=== PATIENT | male | born 1940 | race Caucasian/White ===

== ENCOUNTER 2021-07-04 13:47 | Emergency (ER) | payer MEDICARE ==
[~2021-07-04] VITALS: Ht 167.6 cm; Wt 68.2 kg
[2021-07-04] MEDS ORDERED: ALBUTEROL INHALER 1 PUFF/90 MCG INHALER IH PRN (14:20)
[2021-07-04] MEDS ORDERED: methylPREDNISolone sod succ 125mg/2ml vial IV ONE (14:25)
[2021-07-04 15:01] LABS: BASOPHILS # (AUTO) 0.2 X10'3 (0-0.2); BASOPHILS % (AUTO) 1.4 % (0-1); EOSINOPHILS # (AUTO) 0.2 X10'3 (0-0.9); EOSINOPHILS % (AUTO) 1.7 % (0-6); HEMOGLOBIN 15.3 g/dl (14.0-17.9); LYMPHOCYTES # (AUTO) 1.4 X10'3 (1.1-4.8); LYMPHOCYTES % (AUTO) 12.5 % (21-51); MEAN CORPUSCULAR HEMOGLOBIN 31.4 PG (27.0-31.0); MEAN CORPUSCULAR HGB CONC 34.1 g/dL (33.0-36.5); MEAN CORPUSCULAR VOLUME 92.1 FL (78-98); MEAN PLATELET VOLUME 8.4 FL (7.4-10.4); MONOCYTES # (AUTO) 0.8 X10'3 (0-0.9); MONOCYTES % (AUTO) 7.2 % (2-12); NEUTROPHILS # (AUTO) 8.7 X10'3 (1.8-7.7); NEUTROPHILS % (AUTO) 77.2 % (42-75); PLATELET COUNT 230 X10'3 (140-440); RED BLOOD COUNT 4.88 X10'6 (4.70-6.10); RED CELL DISTRIBUTION WIDTH 14.2 % (11.5-14.5); WHITE BLOOD COUNT 11.3 X10'3 (4.5-11.0)
[2021-07-04 15:24] LABS: ALANINE AMINOTRANSFERASE 19 U/L (12-78); ALBUMIN 4.1 G/DL (3.4-5.0); ALBUMIN/GLOBULIN RATIO 0.9 (1.1-1.5); ALKALINE PHOSPHATASE 122 IU/L (46-116); ANION GAP 10 (8-16); ASPARTATE AMINO TRANSFERASE 18 U/L (10-37); BLOOD UREA NITROGEN 23 MG/DL (7-18); BUN/CREATININE RATIO 17.3 (5.4-32.0); CHLORIDE 104 MMOL/L (99-107); CREATININE 1.33 MG/DL (0.60-1.10); GLUCOSE 87 MG/DL (70-104); POTASSIUM 4.3 MMOL/L (3.5-5.1); SODIUM 142 MMOL/L (135-145); TOTAL CARBON DIOXIDE 27.6 MMOL/L (24-32); TOTAL PROTEIN 8.5 G/DL (6.4-8.2); eGFR 51 ML/MIN
[2021-07-04] MEDS ORDERED: iohexol 350MG/ML 100ml bottle IV ONE (15:39)
[2021-07-04 16:59] VITALS: BP 142/106
[2021-07-04] MEDS ORDERED: PRED20TA PO (18:29)
[2021-07-04] MEDS ORDERED: DOXY-11 PO (18:29)
== END 2021-07-04 18:57 | disposition home or self-care (01) ==
LOC: ER 13:48
DX: I71.9 Aortic aneurysm of unspecified site, without rupture (principal); Z20.822 Contact with and (suspected) exposure to COVID-19; J44.1 Chronic obstructive pulmonary disease with (acute) exacerbation; R05.9 Cough, unspecified; R06.02 Shortness of breath; J02.9 Acute pharyngitis, unspecified; I10 Essential (primary) hypertension; E78.00 Pure hypercholesterolemia, unspecified; Z87.01 Personal history of pneumonia (recurrent); Z95.0 Presence of cardiac pacemaker; Z98.890 Other specified postprocedural states; Z79.2 Long term (current) use of antibiotics
CPT/HCPCS: 36415; 71045; 71275; 80053; 84145; 84484; 85025; 87502; 87503; 87635; 93005; 96374; 99285; C9803; J2930; Q9967

== ENCOUNTER 2022-01-28 15:24 | Emergency (ER) | payer MEDICARE ==
[~2022-01-28] VITALS: Ht 172.7 cm; Wt 68.2 kg
[2022-01-28 17:13] LABS: BASOPHILS # (AUTO) 0.1 X10'3 (0-0.2); BASOPHILS % (AUTO) 0.8 % (0-1); EOSINOPHILS # (AUTO) 0.1 X10'3 (0-0.9); EOSINOPHILS % (AUTO) 1.9 % (0-6); HEMATOCRIT 48.5 % (42.0-52.0); HEMOGLOBIN 16.4 g/dl (14.0-17.9); LYMPHOCYTES # (AUTO) 0.9 X10'3 (1.1-4.8); LYMPHOCYTES % (AUTO) 11.6 % (21-51); MEAN CORPUSCULAR HEMOGLOBIN 30.4 PG (27.0-31.0); MEAN CORPUSCULAR HGB CONC 33.8 g/dL (33.0-36.5); MEAN PLATELET VOLUME 8.4 FL (7.4-10.4); MONOCYTES % (AUTO) 12.6 % (2-12); NEUTROPHILS # (AUTO) 5.6 X10'3 (1.8-7.7); NEUTROPHILS % (AUTO) 73.1 % (42-75); PLATELET COUNT 193 X10'3 (140-440); RED BLOOD COUNT 5.39 X10'6 (4.70-6.10); RED CELL DISTRIBUTION WIDTH 14.4 % (11.5-14.5); WHITE BLOOD COUNT 7.6 X10'3 (4.5-11.0)
[2022-01-28 17:29] LABS: ALANINE AMINOTRANSFERASE 19 U/L (12-78); ALBUMIN 4.3 G/DL (3.4-5.0); ALKALINE PHOSPHATASE 132 IU/L (46-116); ANION GAP 12 (8-16); ASPARTATE AMINO TRANSFERASE 25 U/L (10-37); BILIRUBIN,TOTAL 0.8 MG/DL (0.1-1.0); BLOOD UREA NITROGEN 31 MG/DL (7-18); BUN/CREATININE RATIO 20.4 (5.4-32.0); CALCIUM 9.3 MG/DL (8.5-10.1); CHLORIDE 97 MMOL/L (99-107); CREATININE 1.52 MG/DL (0.60-1.10); GLUCOSE 88 MG/DL (70-104); POTASSIUM 3.8 MMOL/L (3.5-5.1); SODIUM 136 MMOL/L (135-145); TOTAL CARBON DIOXIDE 27.3 MMOL/L (24-32); TOTAL PROTEIN 8.6 G/DL (6.4-8.2); eGFR 44 ML/MIN
--- NOTE | 2022-01-28 19:02 | NUR ---
PT ROOMED IN BED 14. ORDERED EKG. ASSUMED CARE OF PT.
[2022-01-28] MEDS ORDERED: levoFLOXACIN-Levaquin 500mg/D5 100 ML IV ONE (19:45)
[2022-01-28] MEDS ORDERED: LEVO250T43 PO (19:49)
[2022-01-28] MEDS ORDERED: normal saline 1000ml 1,000 ML IV ONE (19:50)
[2022-01-28 20:21] VITALS: BP 123/79
== END 2022-01-28 20:34 | disposition home or self-care (01) ==
LOC: ER 15:24
DX: R05.9 Cough, unspecified (principal); R06.02 Shortness of breath; E78.00 Pure hypercholesterolemia, unspecified; I10 Essential (primary) hypertension; J44.9 Chronic obstructive pulmonary disease, unspecified; Z87.01 Personal history of pneumonia (recurrent); Z95.0 Presence of cardiac pacemaker; Z98.890 Other specified postprocedural states; Z79.2 Long term (current) use of antibiotics
CPT/HCPCS: 36415; 71046; 80053; 83605; 83880; 85025; 87040; 93005; 96365; 99285; J1956; J7030

== ENCOUNTER 2022-04-12 12:38 | Inpatient (IN) | payer MEDICARE ==
[~2022-04-12] VITALS: Ht 172.7 cm; Wt 66.0 kg
[2022-04-12 13:57] LABS: BASOPHILS % (AUTO) 0.4 % (0-1); EOSINOPHILS # (AUTO) 0.1 X10'3 (0-0.9); EOSINOPHILS % (AUTO) 0.6 % (0-6); HEMATOCRIT 42.9 % (42.0-52.0); HEMOGLOBIN 14.4 g/dl (14.0-17.9); LYMPHOCYTES % (AUTO) 10.6 % (21-51); MEAN CORPUSCULAR HEMOGLOBIN 31.6 PG (27.0-31.0); MEAN CORPUSCULAR HGB CONC 33.5 g/dL (33.0-36.5); MEAN CORPUSCULAR VOLUME 94.3 FL (78-98); MEAN PLATELET VOLUME 8.6 FL (7.4-10.4); MONOCYTES # (AUTO) 0.6 X10'3 (0-0.9); MONOCYTES % (AUTO) 6.5 % (2-12); NEUTROPHILS # (AUTO) 8.1 X10'3 (1.8-7.7); NEUTROPHILS % (AUTO) 81.9 % (42-75); PLATELET COUNT 181 X10'3 (140-440); RED BLOOD COUNT 4.55 X10'6 (4.70-6.10); RED CELL DISTRIBUTION WIDTH 15.4 % (11.5-14.5); WHITE BLOOD COUNT 9.8 X10'3 (4.5-11.0)
[2022-04-12 14:11] LABS: ALANINE AMINOTRANSFERASE 45 U/L (12-78); ALBUMIN/GLOBULIN RATIO 1.1 (1.1-1.5); ALKALINE PHOSPHATASE 134 IU/L (46-116); ANION GAP 10 (8-16); ASPARTATE AMINO TRANSFERASE 31 U/L (10-37); BILIRUBIN,TOTAL 0.6 MG/DL (0.1-1.0); BLOOD UREA NITROGEN 30 MG/DL (7-18); BUN/CREATININE RATIO 15.6 (5.4-32.0); CALCIUM 9.4 MG/DL (8.5-10.1); CHLORIDE 104 MMOL/L (99-107); CREATININE 1.92 MG/DL (0.60-1.10); GLUCOSE 122 MG/DL (70-104); POTASSIUM 4.2 MMOL/L (3.5-5.1); SODIUM 143 MMOL/L (135-145); TOTAL CARBON DIOXIDE 29.5 MMOL/L (24-32); TOTAL PROTEIN 7.7 G/DL (6.4-8.2); eGFR 34 ML/MIN
[2022-04-12] MEDS ORDERED: loperamide 2mg capsule PO ONE (14:45)
[2022-04-12 14:46] LABS: CREATINE KINASE 112 U/L (39-308)
[2022-04-12] MEDS ORDERED: ASPI81TA52 PO (15:36)
[2022-04-12] MEDS ORDERED: HYDR25TA4 PO (15:36)
[2022-04-12] MEDS ORDERED: ROSU10TA28 PO (15:36)
[2022-04-12] MEDS ORDERED: METO50TA17 PO (15:36)
[2022-04-12] MEDS ORDERED: DILT-94 PO (15:36)
[2022-04-12] MEDS ORDERED: MULT-1142 PO (15:37)
[2022-04-12] MEDS ORDERED: acetaminophen 325mg tablet PO PRN ×2 (15:50)
[2022-04-12] MEDS ORDERED: mag hydrox/Alum hydrox/simeth 30ml oral suspension PO PRN (15:50)
[2022-04-12] MEDS ORDERED: morphine 2 MG/ML inj. syringe IV PRN ×2 (15:50)
[2022-04-12] MEDS ORDERED: magnesium hydroxide 30ml (MOM) UD suspension PO PRN (15:50)
[2022-04-12] MEDS ORDERED: ondansetron/PF 4mg/2ml inj IV PRN (15:50)
--- NOTE | 2022-04-12 19:30 | NUR ---
Patient in room ORTHO 4017. I have received report from JOSEPH Raines and had the opportunity to ask questions and assume patient care.
[2022-04-12 19:45] VITALS: BP 140/59
[2022-04-12] MEDS: docusate sod 100mg capsule PO SCH (20:00)
[2022-04-12] MEDS: furosemide 20 MG/2 ML vial IV SCH (20:49)
[2022-04-12 22:00] VITALS: BP_SYST 117; BP_SYST 122; BP_SYST 126; BP_DIAS 78; BP_DIAS 80; BP_DIAS 87
[2022-04-13] VITALS (11 sets, daily range): BP systolic 105–142; BP diastolic 49–74
--- NOTE | 2022-04-13 06:31 | NUR ---
Patient in room ORTHO 4017. I have received report from Genevieve RUIZ and had the opportunity to ask questions and assume patient care.
--- NOTE | 2022-04-13 06:38 | NUR ---
Problems reprioritized. Patient report given, questions answered & plan of care reviewed with JOSEPH Rogers.
[2022-04-13 06:55] LABS: BASOPHILS # (AUTO) 0.1 X10'3 (0-0.2); BASOPHILS % (AUTO) 0.8 % (0-1); EOSINOPHILS # (AUTO) 0.2 X10'3 (0-0.9); HEMATOCRIT 35.5 % (42.0-52.0); HEMOGLOBIN 12.2 g/dl (14.0-17.9); LYMPHOCYTES # (AUTO) 1.3 X10'3 (1.1-4.8); LYMPHOCYTES % (AUTO) 20.8 % (21-51); MEAN CORPUSCULAR HEMOGLOBIN 31.9 PG (27.0-31.0); MEAN CORPUSCULAR HGB CONC 34.2 g/dL (33.0-36.5); MEAN CORPUSCULAR VOLUME 93.2 FL (78-98); MONOCYTES # (AUTO) 0.6 X10'3 (0-0.9); MONOCYTES % (AUTO) 9.7 % (2-12); NEUTROPHILS # (AUTO) 4.3 X10'3 (1.8-7.7); NEUTROPHILS % (AUTO) 65.7 % (42-75); PLATELET COUNT 134 X10'3 (140-440); RED BLOOD COUNT 3.81 X10'6 (4.70-6.10); RED CELL DISTRIBUTION WIDTH 15.5 % (11.5-14.5); WHITE BLOOD COUNT 6.5 X10'3 (4.5-11.0)
[2022-04-13 07:04] LABS: ANION GAP 13 (8-16); BLOOD UREA NITROGEN 29 MG/DL (7-18); BUN/CREATININE RATIO 16.5 (5.4-32.0); CALCIUM 8.2 MG/DL (8.5-10.1); CHLORIDE 104 MMOL/L (99-107); CREATININE 1.76 MG/DL (0.60-1.10); GLUCOSE 78 MG/DL (70-104); POTASSIUM 3.5 MMOL/L (3.5-5.1); SODIUM 145 MMOL/L (135-145); TOTAL CARBON DIOXIDE 28.1 MMOL/L (24-32); eGFR 37 ML/MIN
[2022-04-13] MEDS: atorvastatin 20mg tablet PO SCH ×2 (08:00→09:15)
[2022-04-13] MEDS ORDERED: HYDROchlorothiazide 25mg tablet PO SCH (08:00)
[2022-04-13] MEDS: docusate sod 100mg capsule PO SCH ×2 (08:00→19:14)
[2022-04-13] MEDS: aspirin 81mg, enteric-coated 1 TAB TABLET.DR PO SCH (08:00)
[2022-04-13] MEDS ORDERED: ceFAZolin 1000mg inj ONE (09:10)
[2022-04-13] MEDS ORDERED: LIDOcaine 1% W/epiNEPHrine 1:100,000 20ml vial ONE (09:11)
[2022-04-13] MEDS: diltiazem CD 120mg capsule (once-daily) PO SCH (09:17)
[2022-04-13] MEDS: metoprolol tartrate 50mg tablet PO SCH (09:17)
[2022-04-13] MEDS: multivitamins, therapeutics tablet PO SCH (09:18)
[2022-04-13] MEDS: furosemide 20 MG/2 ML vial IV SCH ×2 (09:19→19:05)
[2022-04-13] MEDS ORDERED: fentaNYL/PF 50MCG/1 ML 2ML syringe ONE (11:39)
[2022-04-13] MEDS ORDERED: midazolam 1 mg/ML 2ml injection ONE (11:39)
--- NOTE | 2022-04-13 13:20 | NUR ---
patient went to [employer] to address pacemaker. returned to floor 1300hrs in stable condition. dressing to JACKY chest CDI. VSS will continue to monitor
[2022-04-13] MEDS ORDERED: HYDROcodone/acetaminophen 10/325mg tab PO PRN (13:30)
[2022-04-13] MEDS ORDERED: HYDROcodone/acetaminophen 5mg/325mg tablet PO PRN (13:30)
[2022-04-13] MEDS ORDERED: vancomycin/NS 1 GM ADD-VANTAGE 250 ML IV ONE (15:05)
--- NOTE | 2022-04-13 17:25 | NUR ---
c/o pain in left shoulder but not willing to take pain pill. Dressing to JACKY chest CDI. will continue to monitor
--- NOTE | 2022-04-13 18:15 | NUR ---
Patient in room ORTHO 4017. I have received report from JOSEPH Rogers and had the opportunity to ask questions and assume patient care.
--- NOTE | 2022-04-13 18:17 | NUR ---
patient given [place] 5mg for pain in left chest at pacemaker site. Report given to Genevieve RUIZ
[2022-04-14 02:00] VITALS: BP 127/52
--- NOTE | 2022-04-14 06:26 | NUR ---
Patient in room ORTHO 4017. I have received report from ALYSHA RUIZ and had the opportunity to ask questions and assume patient care.
--- NOTE | 2022-04-14 06:30 | NUR ---
Problems reprioritized. Patient report given, questions answered & plan of care reviewed with JOSEPH Rogers.
[2022-04-14 07:00] VITALS: BP 133/66
[2022-04-14] MEDS: aspirin 81mg, enteric-coated 1 TAB TABLET.DR PO SCH (07:39)
[2022-04-14] MEDS: multivitamins, therapeutics tablet PO SCH (07:39)
[2022-04-14] MEDS: diltiazem CD 120mg capsule (once-daily) PO SCH (07:39)
[2022-04-14] MEDS: furosemide 20 MG/2 ML vial IV SCH (07:39)
[2022-04-14 07:40] VITALS: BP_SYST 133
[2022-04-14] MEDS: metoprolol tartrate 50mg tablet PO SCH (07:40)
[2022-04-14] MEDS: docusate sod 100mg capsule PO SCH (07:42)
--- NOTE | 2022-04-14 07:48 | NUR ---
Malnutrition consult: Pt reports 14-23lb wt loss per MST. Current wt is within 2kg from previous wt in 2020. No signs of muscle or fat wasting noted. Pt has BLE trace edema per documentation. Currently on Heart Healthy diet w/ 100% intake of first 2 meals. At this time pt does not meet minimum criteria for malnutrition. Will continue to monitor. Addendum: 04/14/22 at [address] Amended: Links added.
[2022-04-14] MEDS ORDERED: atorvastatin 20mg tablet PO SCH (08:00)
[2022-04-14 08:22] LABS: BASOPHILS # (AUTO) 0.1 X10'3 (0-0.2); BASOPHILS % (AUTO) 0.8 % (0-1); EOSINOPHILS # (AUTO) 0.3 X10'3 (0-0.9); EOSINOPHILS % (AUTO) 3.1 % (0-6); HEMATOCRIT 43.5 % (42.0-52.0); HEMOGLOBIN 14.7 g/dl (14.0-17.9); LYMPHOCYTES # (AUTO) 1.5 X10'3 (1.1-4.8); LYMPHOCYTES % (AUTO) 16.5 % (21-51); MEAN CORPUSCULAR HEMOGLOBIN 31.8 PG (27.0-31.0); MEAN CORPUSCULAR HGB CONC 33.9 g/dL (33.0-36.5); MEAN CORPUSCULAR VOLUME 93.7 FL (78-98); MEAN PLATELET VOLUME 8.7 FL (7.4-10.4); MONOCYTES # (AUTO) 0.9 X10'3 (0-0.9); MONOCYTES % (AUTO) 9.3 % (2-12); NEUTROPHILS # (AUTO) 6.6 X10'3 (1.8-7.7); NEUTROPHILS % (AUTO) 70.3 % (42-75); PLATELET COUNT 179 X10'3 (140-440); RED BLOOD COUNT 4.64 X10'6 (4.70-6.10); RED CELL DISTRIBUTION WIDTH 15.2 % (11.5-14.5); WHITE BLOOD COUNT 9.3 X10'3 (4.5-11.0)
[2022-04-14 08:37] LABS: ALBUMIN 3.8 G/DL (3.4-5.0); ANION GAP 13 (8-16); BLOOD UREA NITROGEN 28 MG/DL (7-18); BUN/CREATININE RATIO 17.1 (5.4-32.0); CALCIUM 8.5 MG/DL (8.5-10.1); CHLORIDE 97 MMOL/L (99-107); CREATININE 1.64 MG/DL (0.60-1.10); GLUCOSE 81 MG/DL (70-104); POTASSIUM 3.1 MMOL/L (3.5-5.1); SODIUM 144 MMOL/L (135-145); TOTAL CARBON DIOXIDE 33.9 MMOL/L (24-32); eGFR 40 ML/MIN
[2022-04-14] MEDS ORDERED: HYDR25TA4 PO (11:30)
[2022-04-14] MEDS ORDERED: CEPH250T PO (11:30)
--- NOTE | 2022-04-14 13:48 | NUR ---
patient seen by dr pereira and dr ghosh, is for discharge. All Dc instructions given to patient . Dressing to left upper chest CDI.. No further episode of syncope or SOB. Awaiting ride at this time
--- NOTE | 2022-04-14 16:19 | NUR ---
patient dc home via private car with family member to home,1500 prescription apparently was not sent to [facility] on [address]. pharmacist contacted there and prescription for keflex called in.
== END 2022-04-14 13:30 | disposition home or self-care (01) | DRG 258 ==
LOC: ER 12:39 → ED HOLD 15:53 → ORTHO 4S 19:50
PROVIDERS: ADMIT Internal Medicine; ATTEND Internal Medicine
PROC: 4A10X4Z Monitoring of Central Nervous Electrical Activity, External Approach (ICD-10-PCS; 2022-04-12)
PROC: 0JPT0PZ Removal of Cardiac Rhythm Related Device from Trunk Subcutaneous Tissue and Fascia, Open Approach (ICD-10-PCS; principal; 2022-04-13)
PROC: 0JH606Z Insertion of Pacemaker, Dual Chamber into Chest Subcutaneous Tissue and Fascia, Open Approach (ICD-10-PCS; 2022-04-13)
DX: I49.5 Sick sinus syndrome (principal); I50.33 Acute on chronic diastolic (congestive) heart failure; I13.0 Hypertensive heart and chronic kidney disease with heart failure and stage 1 through stage 4 chronic kidney disease, or unspecified chronic kidney disease; N17.9 Acute kidney failure, unspecified; J96.11 Chronic respiratory failure with hypoxia; R55 Syncope and collapse; E78.00 Pure hypercholesterolemia, unspecified; E87.6 Hypokalemia; N18.30 Chronic kidney disease, stage 3 unspecified; I25.10 Atherosclerotic heart disease of native coronary artery without angina pectoris; J44.9 Chronic obstructive pulmonary disease, unspecified; R56.9 Unspecified convulsions; T50.2X5A Adverse effect of carbonic-anhydrase inhibitors, benzothiadiazides and other diuretics, initial encounter; Z85.820 Personal history of malignant melanoma of skin; Z86.79 Personal history of other diseases of the circulatory system; Z87.19 Personal history of other diseases of the digestive system; Z87.891 Personal history of nicotine dependence; Z91.19 Patient's noncompliance with other medical treatment and regimen; Z95.0 Presence of cardiac pacemaker; Z99.81 Dependence on supplemental oxygen; Z79.899 Other long term (current) drug therapy; Y92.89 Other specified places as the place of occurrence of the external cause; I27.20 Pulmonary hypertension, unspecified
CPT/HCPCS: 33228; 36415; 70450; 71045; 72125; 80048; 80053; 82550; 83880; 84484; 85025; 87081; 93005; 93306; 95816; 97116; 97161; 97530; 99152; 99153; 99285; A4620; C1786; G0378; J0690; J1940; J2250; J3010; J3370; J3490; J7030